=== PATIENT | male | born 2005 | race Hispanic/Latino ===

== ENCOUNTER 2024-12-01 16:19 | Emergency (ER) | payer SELFPAY ==
[~2024-12-01] VITALS: Ht 180.3 cm; Wt 65.8 kg
[2024-12-01 16:22] VITALS: BP 134/58; PULSE 108; RESP 18; TEMP 99.6
--- NOTE | 2024-12-01 16:28 | ERN ---
ED Note History of Present Illness Stated Complaint: ABDOMINAL PAIN Chief Complaint: Abdominal Pain Time Seen by MD: 16:22 Dictation: PATIENT IS A 19-YEAR-OLD MALE HERE WITH PERIUMBILICAL AND LOWER ABDOMINAL PAIN WITH NAUSEA VOMITING FEVER FOR THE LAST THREE DAYS. NO FLANK PAIN NO DIARRHEA. NO PRIMARY CARE DOCTOR. DENIES ANY CHANGES IN URINATION. STATES HE HAD AN UNKNOWN INTESTINAL SURGERY A LITTLE BOY HOWEVER UNABLE TO RECALL THE NAME OR WHAT WAS DONE. Allergies: Coded Allergies: No Known Drug Allergies (Unverified Allergy, Unknown, 12/01/24) Home Meds Active Scripts Dicyclomine HCl (Bentyl) 20 Mg Tab, 20 MG PO Q6HPRN PRN for Abdominal pain/cramping, #30 TAB Prov:CRISTIAN CORNEJO DIRECTOR OF MECHANICAL ENGINEERING 12/01/24 Metronidazole (Metronidazole) 500 Mg Tablet, 1 TAB PO TID for 10 Days, #30 TAB 0 Refills Prov:CRISTIAN CORNEJO DIRECTOR OF MECHANICAL ENGINEERING 12/01/24 Past Medical History Past Medical History: No Pertinent History Surgical History: Other Surgical History Other: INTESTINAL SURGERY A CHILD RN Note Reviewed/Agreed w/PFSH: Yes Review of System Dictation CONSTITUTIONAL: NEGATIVE EXCEPT FOR HPI FEVER CHILLS HEAD/FACE: NEGATIVE EXCEPT FOR HPI EENT: NEGATIVE EXCEPT FOR HPI RESPIRATORY: NEGATIVE EXCEPT FOR HPI GASTROINTESTINAL/ABDOMINAL: NEGATIVE EXCEPT FOR HPI PERIUMBILICAL PAIN WITH REBOUND TENDERNESS NAUSEA VOMITING GENITOURINARY: NEGATIVE EXCEPT FOR HPI MUSCULOSKELETAL: NEGATIVE EXCEPT FOR HPI INTEGUMENTARY: NEGATIVE EXCEPT FOR HPI NEUROLOGICAL/PSYCH: NEGATIVE EXCEPT FOR HPI HEMATOLOGIC/LYMPHATIC: NEGATIVE EXCEPT FOR HPI ALL SYSTEMS NEGATIVE, EXCEPT NOTED ABOVE. 13 POINT REVIEW OF SYSTEMS ASSESSED AND ALL NEGATIVE EXCEPT FOR ABOVE. Initial Vital Sign VS Vital Signs Date Time Temp Pulse Resp B/P (MAP) Pulse Ox O2 Delivery O2 Flow Rate FiO2 12/01/24 16:22 99.7 108 18 134/58 98 Room Air Physical Exam Dictation VITAL SIGNS REVIEWED GENERAL APPEARANCE: ALERT, ORIENTED X 3, MODERATE ACUTE DISTRESS, WELL DEVELOPED, NOURISHED. HEAD AND FACE: NON-TRAUMATIC. EYES: PERRL, PINK CONJUNCTIVAS, EYELID NO TRAUMA, ANTERIOR CHAMBER WITH ARCUS SENILIS. EARS: PINNAS INTACT AND NO SIGNS OF TRAUMA OR ERYTHEMA EAR CANALS CLEAR AND NO DISCHARGE TM NO ERYTHEMA NOSE: NO DISCHARGE, NO BLEEDING. OROPHARYNX: MOUTH NORMAL, TONGUE PINK, PHARYNX CLEAR,NO ERYTHEMA, TONSILS NO EXUDATES, NO ABSCESSES NOTED, MUCOUS MEMBRANE MOIST NECK: SUPPLE, NON-TENDER, NO THYROMEGALY, NO MASSES, NO JVD, NO BRUITS BREAST:DEFERRED CHEST:NO TENDERNESS, NO CREPITUS, NO PARADOXICAL MOVEMENT, NO RETRACTIONS LUNGS:CLEAR, WELL-VENTILATED, SYMMETRIC, NO RALES, NO WHEEZING, NO RHONCHI, NO STRIDOR, GOOD BREATH SOUNDS BILATERALLY HEART: REGULAR RATE, REGULAR RHYTHM, NO MURMUR, NO GALLOPS VASCULAR: NO PERIPHERAL EDEMA, ABDOMEN: SOFT, HYPOACTIVE BOWEL SOUNDS /PERIUMBILICAL REBOUND TENDERNESS. NEGATIVE CVAT BILATERALLY RECTAL: DEFERRED GENITAL: DEFERRED NEUROLOGICAL: NORMAL SPEECH, MOTOR FUNCTION INTACT, SENSORY FUNCTION INTACT MUSCULOSKELETAL: NECK NONTENDER, FULL RANGE OF MOTION, BACK NONTENDER, FULL RANGE OF MOTION, EXTREMITIES: NONTENDER, FULL RANGE OF MOTION SKIN: COLOR PINK, DRY, NO TURGOR, NO RASH, NO LACERATIONS, NO ABRASIONS, NO CONTUSIONS. LYMPHATIC: DEFERRED Results (Laboratory/Radiology) Laboratory/Radiology Laboratory Tests Test 12/01/24 17:10 12/01/24 18:33 White Blood Count 13.0 K/uL (4.8-10.8) H Red Blood Count 4.95 MIL/uL (4.50-6.20) Hemoglobin 15.7 g/dL (14.0-18.0) Hematocrit 45.4 % (42-54) Mean Corpuscular Volume 91.7 fL (80-100) Mean Corpuscular Hemoglobin 31.7 pg (27.0-33.0) Mean Corpuscular Hemoglobin Concent 34.6 g/dL (32.0-36.0) Red Cell Distribution Width 12.3 % (11.0-15.5) Platelet Count 207 K/uL (130-400) Mean Platelet Volume 10.6 fL (7.5-10.5) H Immature Granulocyte % (Auto) 0.2 % (0-1) Neutrophils (%) (Auto) 73.1 % (40.0-77.0) Lymphocytes (%) (Auto) 13.9 % (21.0-51.0) L Monocytes (%) (Auto) 12.3 % (3.0-13.0) Eosinophils (%) (Auto) 0.2 % (0.0-8.0) Basophils (%) (Auto) 0.3 % (0.0-5.0) Neutrophils # (Auto) 9.5 K/uL (1.8-7.7) H Lymphocytes # (Auto) 1.8 K/uL (1.0-4.8) Monocytes # (Auto) 1.6 K/uL (0.1-1.0) H Eosinophils # (Auto) 0.02 K/uL (0.00-0.70) Basophils # (Auto) 0.04 K/uL (0.00-0.20) Absolute Immature Granulocyte (auto 0.03 K/uL (0-1) Nucleated Red Blood Cells 0.0 % (0.0-0.19) Sodium Level 138 mmol/L (136-145) Potassium Level 3.5 mmol/L (3.5-5.1) Chloride Level 99 mmol/L (101-111) L Carbon Dioxide Level 29 mmol/L (21-32) Blood Urea Nitrogen 7 mg/dL (7-18) Creatinine 0.8 mg/dL (0.5-1.3) Glomerular Filtration Rate Calc 129 mL/min (>90) Random Glucose 106 mg/dL (70-105) H Lactic Acid Level 1.3 mmol/L (0.8-2.5) Total Calcium 9.2 mg/dL (8.5-10.1) Lipase 15 U/L (16-77) L Urine Color LIGHT-YELLOW (YELLOW) Urine Appearance CLEAR (CLEAR) Urine pH 6.5 (5.0-8.0) Urine Specific [place] 1.046 (1.001-1.031) Urine Protein 20 mg/dL (NEGATIVE) H Urine Glucose (UA) NEGATIVE mg/dL (NEGATIVE) Urine Ketones 10 mg/dL (NEGATIVE) H Urine Occult Blood SMALL (NEGATIVE) H Urine Nitrate NEGATIVE (NEGATIVE) Urine Bilirubin NEGATIVE mg/dL (NEGATIVE) Urine Urobilinogen 0.2 mg/dL (0.2-1.0) Urine Leukocyte Esterase NEGATIVE Mat/uL Urine RBC 2-5 /HPF (0-1) H Urine WBC 2-5 /HPF (0-1) H Urine Squamous Epithelial Cells RARE /HPF (0-2) Urine Bacteria None /HPF (None Seen) Urine Opiates Screen POSITIVE (NEGATIVE) H Urine Barbiturates Screen NEGATIVE (NEGATIVE) Urine Phencyclidine Screen NEGATIVE (NEGATIVE) Urine Amphetamines Screen NEGATIVE (NEGATIVE) Urine Benzodiazepines Screen NEGATIVE (NEGATIVE) Urine Cocaine Screen NEGATIVE (NEGATIVE) Urine Marijuana (THC) Screen POSITIVE (NEGATIVE) H ADRENAL GLANDS: Unremarkable. KIDNEYS, URETERS, AND BLADDER: Normal kidneys. No hydronephrosis. STOMACH AND BOWEL: Diffuse bowel wall thickening throughout the colon, consistent with colitis. No bowel obstruction. APPENDIX: Normal appendix. PERITONEUM: No free fluid. No free air. LYMPH NODES: No lymphadenopathy is evident. REPRODUCTIVE: Unremarkable as visualized. VASCULATURE: No evidence of abdominal aortic aneurysm. BONES: No aggressive appearing osseous lesion. No acute osseous pathology evident. IMPRESSION: Diffuse bowel wall thickening throughout the colon, consistent with colitis. No bowel obstruction. Normal appendix. Normal kidneys. No hydronephrosis. Enlarged liver. No focal hepatic lesions. /[facility] Labs Reviewed?: Yes ED Course ED Course Orders Procedure Category Date Status Time Blood Cult KRISTYN 12/01/24 In Process 16:25 Lactic Acid LAB 12/01/24 Complete 16:25 Cbc With Differential LAB 12/01/24 Complete 16:25 Urinalysis Profile LAB 12/01/24 Complete 16:25 Ct Abdomen/Pelvis CT 12/01/24 Resulted W/Contrast 16:25 0.9%Nacl 1000ml (Ns PHA 12/01/24 Complete 1000ml) 16:30 Morphine 2mg Syg PHA 12/01/24 Complete (Morphine 2mg Syg) 16:30 Ondansetron 4mg Inj PHA 12/01/24 Complete (Zofran 4mg Inj) 16:30 Lipase LAB 12/01/24 Complete 16:25 Basic Metabolic Panel LAB 12/01/24 Complete 16:25 Drug Screen Urine LAB 12/01/24 Complete 16:25 Iohexol (Omnipaque) PHA 12/01/24 Complete 17:55 Current Medications Medications (Trade) Dose Ordered Sig/Melanie Route PRN Reason Start Time Stop Time Status Last Admin Dose Admin Iohexol (Omnipaque) 75 ml STK-MED ONCE IV 12/01/24 17:55 12/01/24 17:55 DC Morphine Sulfate (morPHINE 2MG SYG) 2 mg ONCE ONCE IVP 12/01/24 16:30 12/01/24 16:31 DC 12/01/24 17:47 Ondansetron HCl (zoFRAN 4MG INJ) 4 mg ONCE ONCE IVP 12/01/24 16:30 12/01/24 16:31 DC 12/01/24 17:46 Sodium Chloride 1,000 ml @ 0 mls/hr ONCE ONCE IV 12/01/24 16:30 12/01/24 16:31 DC 12/01/24 17:47 Vital Signs Date Time Temp Pulse Resp B/P (MAP) Pulse Ox O2 Delivery O2 Flow Rate FiO2 12/01/24 16:22 99.7 108 18 134/58 98 Room Air 1902/patient states pain markedly improved after treatment with fluids and morphine. We will discharged home with colitis, given Bentyl and metronidazole. Told to follow up with his doctor or given a list of doctors on staff for the follow up in the next 2-3 days. Also clear liquid diet only Medical Decision Making MDM MDM: Differential diagnosis: Appendicitis/diverticulitis/UTI/hernia incarce ration/pancreatitis/she TI/sepsis Rationale: Tests considered and ordered secondary to shared decision making include: Radiology/labs Previous outside records reviewed: Old ER visits. Risk of complication and/or morbidity or mortality of patient management: None Medications-Per medication reconciliation Need for hospitalization: Patient does not meet criteria for hospitalization. No Need for emergency major/minor surgery: No There are no social concerns with this patient. Prescription drug management Bentyl/metronidazole Prescriptions will include symptomatic care Patient's prior external medical records from other ER visits were reviewed by me as indicated. Prior testing and results from previous visits were reviewed. Prior tests were taken into account with medical decision making and resource utilization, independent historian/historians were used to obtain complete medical history. I independently interpreted the test that were performed, results were reviewed by me and considered findings on radiology if ordered. Medical management and examination interpretation discussions were had by me with other qualified healthcare professionals as indicated for the patient's care. DX & DISP Disposition: Discharge Departure Impression: Primary Impression: Acute colitis Additional Impressions: Hyperglycemia, Elevated lipase Condition: Stable Scripts Dicyclomine HCl (Bentyl) 20 Mg Tab 20 MG PO Q6HPRN PRN for Abdominal pain/cramping, #30 TAB Prov: CRISTIAN CORNEJO DIRECTOR OF MECHANICAL ENGINEERING 12/01/24 Metronidazole (Metronidazole) 500 Mg Tablet 1 TAB PO TID for 10 Days, #30 TAB 0 Refills Prov: CRISTIAN CORNEJO NP 12/01/24 Additional Instructions: Follow-up with primary care provider in 1 to 2 days. Take medications as directed here in the emergency room. Okay to continue home medications unless otherwise discussed during your visit in the emergency room today. Return to your nearest emergency room if symptoms worsen or if there is no improvement. Call 911 if you need immediate assistance. Take Tylenol or Motrin [id number] as needed and if no contraindications are present. Increase oral hydration. A wound culture or urine culture was ordered here in the emergency room department please follow-up with primary care provider and advise them to get repeat ports from our facility. If you had any Ibrahima wrap/splints that were applied here, please do not remove them until you see your primary care or specialty. Clear liquid diet for the next24 hours and then advance diet slowly to regular. Take Flagyl every8 hours as directed for the next 10 days. Follow up with your doctor in the next 1-2 days Time of Disposition: 19:03 I have reviewed the case, and I agree with, Diagnosis and Plan CRISTIAN CORNEJO NP Dec 01, 2024 16:28 ANNE MCCRAY DO Dec 02, 2024 07:16
[2024-12-01 17:32] LABS: IMMATURE GRANULOCYTE ABSOLUTE 0.03 K/uL (0-1); NUCLEATED RED BLOOD CELLS 0.0 % (0.0-0.19); PLATELET COUNT (AUTO) 207 K/uL (130-400); RED BLOOD CELL COUNT(AUTO) 4.95 MIL/uL (4.50-6.20); RED CELL DISTRIBUTION WIDTH 12.3 % (11.0-15.5); WHITE BLOOD COUNT (AUTO) 13.0 K/uL (4.8-10.8)
[2024-12-01 17:40] LABS: CREATININE 0.8 mg/dL (0.5-1.3); GLOMERULAR FILTR. RATE CALC 129.0 mL/min (>90); GLUCOSE,RANDOM 106.0 mg/dL (70-105); SODIUM SERUM 138.0 mmol/L (136-145); UREA NITROGEN, BLOOD 7.0 mg/dL (7-18)
[2024-12-01] MEDS: 0.9%NACL 1000ML 1,000 ML IV ONE (17:47)
[2024-12-01] MEDS ORDERED: IOHEXOL-350 75 ML VIAL IV ONE (17:55)
--- NOTE | 2024-12-01 18:30 | HMCIMG ---
EXAM: CT Abdomen and Pelvis with IV contrast CLINICAL HISTORY: PERIUMBILICAL PAIN WITH REBOUND TENDERNESS TECHNIQUE: Axial computed tomography images of the abdomen and pelvis with intravenous contrast. CONTRAST: with intravenous contrast. COMPARISON: None provided. FINDINGS: LUNG BASES: The lung bases appear clear. No pleural effusions are seen. LIVER: Enlarged liver. No focal hepatic lesions. GALLBLADDER AND BILE DUCTS: The gallbladder appears within normal limits. No radioopaque gallstones are seen. No biliary ductal dilatation is evident. PANCREAS: Unremarkable. SPLEEN: Unremarkable. ADRENAL GLANDS: Unremarkable. KIDNEYS, URETERS, AND BLADDER: Normal kidneys. No hydronephrosis. STOMACH AND BOWEL: Diffuse bowel wall thickening throughout the colon, consistent with colitis. No bowel obstruction. APPENDIX: Normal appendix. PERITONEUM: No free fluid. No free air. LYMPH NODES: No lymphadenopathy is evident. REPRODUCTIVE: Unremarkable as visualized. VASCULATURE: No evidence of abdominal aortic aneurysm. BONES: No aggressive appearing osseous lesion. No acute osseous pathology evident. IMPRESSION: Diffuse bowel wall thickening throughout the colon, consistent with colitis. No bowel obstruction. Normal appendix. Normal kidneys. No hydronephrosis. Enlarged liver. No focal hepatic lesions. /[place]
[2024-12-01] MEDS ORDERED: DICY20TA2 PO (19:04)
[2024-12-01] MEDS ORDERED: METR-172 PO (19:04)
[2024-12-01 20:34] LABS: APPEARANCE,URINE CLEAR (CLEAR); GLUCOSE, URINE (UA) NEGATIVE (NEGATIVE); LEUKOCYTE ESTERASE ,URINE NEGATIVE Leu/uL (NEGATIVE); NITRATE,URINE NEGATIVE (NEGATIVE); OCCULT BLOOD,URINE SMALL (NEGATIVE)
[2024-12-01 20:38] LABS: ADD UA MICROSCOPIC YES
[2024-12-01 20:42] LABS: SQUAMOUS EPITHELIAL CELL,UR RARE /HPF (0-2)
[2024-12-01 21:03] LABS: AMPHET/METH SCREEN,URINE NEGATIVE (NEGATIVE); BARBITURATE SCREEN, URINE NEGATIVE (NEGATIVE); CANNABINOID SCREEN,URINE POSITIVE (NEGATIVE); COCAINE SCREEN,URINE NEGATIVE (NEGATIVE)
== END 2024-12-01 19:26 | disposition home or self-care (01) ==
LOC: EDH 16:19
DX: K52.9 Noninfective gastroenteritis and colitis, unspecified (principal); R07.89 Other chest pain; R74.8 Abnormal levels of other serum enzymes
CPT/HCPCS: 99285; 74177; 96374; 96361; 96375; 80048; 80305; 83690; 85025; 87040 ×2; 83605; 81001; 36415; J2270; J7030; J2405; Q9967